=== PATIENT | female | born 1970 | race Caucasian/White ===

== ENCOUNTER 2016-04-21 08:30 | Outpatient (CLI) ==
[2015-03-10 14:13] VITALS: BMI 29.0
--- NOTE | 2016-04-22 10:41 | MAMMO ---
EXAM: Bilateral digital screening mammogram History: Baseline screening Findings: MLO and CC views of bilateral breast demonstrate scattered fibroglandular breast parenchy ma. Benign bilateral breast calcifications. 0.7 cm well circumscribed nodule seen within the lower inner quadrant of the anterior left breast. No suspicious microcalcifications. Impression: Indeterminate lower inner quadrant left breast nodule. Recommend further evaluation wi th spot compression views and ultrasound. BIRADS 0
== END 2016-04-21 08:31 | disposition home or self-care (01) ==
LOC: RAD 08:30
PROVIDERS: ATTEND Nurse Practitioner Family
DX: Z12.31 Encounter for screening mammogram for malignant neoplasm of breast (principal)

== ENCOUNTER 2016-04-27 09:10 | Outpatient (CLI) ==
[2015-03-10 14:13] VITALS: BMI 29.0
--- NOTE | 2016-04-27 10:18 | MAMMO ---
EXAM: Digital left diagnostic mammogram and ultrasound HISTORY: Nodular density seen in the medial left breast COMPARISON: Screening mammogram 04/21/2016 FINDINGS: Two spot compression views of the breast were performed digitally and demonstrate stable scattered fibroglandular density. The nodule in the medial inferior left breast is redemonstrated wi th normal appearing borders and measures 0.6 x 0.8 cm. No additional nodule or abnormality is ident ified. Sonographic evaluation of the area of interest demonstrates no focal nodule or cyst. IMPRESSION: Nodular density in the medial left breast is not visualized on ultrasound with a well m arginated benign-appearing borders. RECOMMENDATION: Follow up left mammogram and ultrasound in 6 months BIRADS category III: Probable benign finding
== END 2016-04-27 09:11 | disposition home or self-care (01) ==
LOC: RAD 09:10
PROVIDERS: ATTEND Nurse Practitioner Family
DX: N63 Unspecified lump in breast (principal)

== ENCOUNTER 2016-05-03 08:35 | Outpatient (CLI) ==
[2015-03-10 14:13] VITALS: BMI 29.0
[2016-05-03 08:58] LABS: BASOPHILS % (AUTO) 0.7 % (0.0-3.0); EOSINOPHILS # (AUTO) 0.1 K/ul (0.0-0.7); EOSINOPHILS % (AUTO) 2.2 % (0.0-7.0); HEMATOCRIT 35.2 % (37.0-47.0); HEMOGLOBIN 10.1 g/dl (12.0-16.0); IMMATURE GRANULOCYTE % (AUTO) 0.2 % (0.0-5.0); LYMPHOCYTES # (AUTO) 1.7 K/uL (0.60-3.4); LYMPHOCYTES % (AUTO) 30.3 (10.0-50.0); MEAN CORPUSCULAR HEMOGLOBIN 22.3 pg (27.0-31.0); MEAN CORPUSCULAR HGB CONC 28.7 (31.8-35.4); MEAN CORPUSCULAR VOLUME 77.7 fl (81.0-99.0); MONOCYTES # (AUTO) 0.3 K/uL (0.4-2.0); MONOCYTES % (AUTO) 5.6 (0-10); NEUTROPHILS # (AUTO) 3.4 K/ul (2.0-6.9); PLATELET COUNT 267 10^3/uL (140-440); RED BLOOD COUNT 4.53 10^6/ul (4.20-5.40); WHITE BLOOD COUNT 5.54 K/ul (4.6-10.2)
[2016-05-03 10:13] LABS: ALBUMIN 3.5 g/dL (3.4-5.0); ALBUMIN/GLOBULIN RATIO 0.95; ANION GAP 12.2; BILIRUBIN,TOTAL 0.36 mg/dL (0.00-1.20); CALCIUM 9.4 mg/dL (8.2-10.2); CREATININE 0.86 mg/dL (0.60-1.30); POTASSIUM 4.2 mmol/L (3.5-5.10); TOTAL PROTEIN 7.2 g/dL (6.4-8.2)
[2016-05-03 10:14] LABS: BUN/CREATININE RATIO 5.81; CHOL/HDL RATIO 4.5 (4.5-5.5)
== END 2016-05-03 08:36 | disposition home or self-care (01) ==
LOC: CAR 08:35
PROVIDERS: ATTEND Nurse Practitioner Family
DX: R05 Cough (principal); Z72.0 Tobacco use; Z00.00 Encounter for general adult medical examination without abnormal findings
CPT/HCPCS: 36415; 80053; 80061; 84443; 85025

== ENCOUNTER 2016-10-12 07:41 | Outpatient (CLI) ==
[2015-03-10 14:13] VITALS: BMI 29.0
--- NOTE | 2016-10-12 09:07 | MAMMO ---
EXAM: Left digital diagnostic mammogram History: Follow-up left breast mass. Comparison: Left breast mammogram 04/27/2016 Findings: MLO and CC views of bilateral breasts demonstrate scattered fibroglandular breast parench yma. Stable benign nodule within the lower inner quadrant of the left breast. No developing masses and no suspicious microcalcifications. Impression: Benign left breast nodule is stable. Recommend return to routine screening mammography schedule. BIRADS 2
== END 2016-10-12 07:42 | disposition home or self-care (01) ==
LOC: RAD 07:41
PROVIDERS: ATTEND Nurse Practitioner Family
DX: N63 Unspecified lump in breast (principal)

== ENCOUNTER 2017-09-19 10:56 | Outpatient (CLI) ==
[2015-03-10 14:13] VITALS: BMI 29.0
== END 2017-09-19 10:57 | disposition home or self-care (01) ==
LOC: LAB 10:56
PROVIDERS: ATTEND Internal Medicine
DX: J20.9 Acute bronchitis, unspecified (principal); J44.9 Chronic obstructive pulmonary disease, unspecified; E66.9 Obesity, unspecified
CPT/HCPCS: 36415; 80053; 80061; 80074; 82306; 82607; 83036; 84439; 84443; 85025

== ENCOUNTER 2017-09-27 08:41 | Outpatient (CLI) ==
[2015-03-10 14:13] VITALS: BMI 29.0
== END 2017-09-27 08:42 | disposition home or self-care (01) ==
LOC: CAR 08:41
PROVIDERS: ATTEND Internal Medicine
DX: R06.02 Shortness of breath (principal); J44.9 Chronic obstructive pulmonary disease, unspecified

== ENCOUNTER 2017-09-28 08:10 | Outpatient (CLI) ==
[2015-03-10 14:13] VITALS: BMI 29.0
== END 2017-09-28 08:11 | disposition home or self-care (01) ==
LOC: LAB 08:10
PROVIDERS: ATTEND Internal Medicine
DX: R71.8 Other abnormality of red blood cells (principal)
CPT/HCPCS: 36415; 82607; 82728; 82746; 83540; 83550; 84466; 85045

== ENCOUNTER 2017-10-17 09:08 | Outpatient (CLI) ==
[2015-03-10 14:13] VITALS: BMI 29.0
--- NOTE | 2017-10-17 10:25 | DI ---
EXAM: Two views of the chest. History: Cough. Findings: Heart size is normal. No focal consolidation. No appreciable pleural fluid and no pneumo thorax. No acute osseous abnormalities. Impression: No acute cardiopulmonary process.
--- NOTE | 2017-10-18 09:47 | MAMMO ---
EXAM: Bilateral digital screening mammogram (2-D and 3-D) History: Screening Comparison: Bilateral mammogram 04/21/2016 Findings: MLO and CC views of bilateral breasts demonstrate scattered fibroglandular breast parenchy ma. CAD was reviewed by the radiologist. Tomosynthesis was performed. Stable benign bilateral breas t calcifications. There are no developing masses and no suspicious microcalcifications. Impression: Benign stable mammogram. Recommend followup routine screening mammography in 1 year. BIRADS 2
== END 2017-10-17 09:09 | disposition home or self-care (01) ==
LOC: RAD 09:08
PROVIDERS: ATTEND Internal Medicine
DX: Z12.31 Encounter for screening mammogram for malignant neoplasm of breast (principal); R05 Cough; F17.210 Nicotine dependence, cigarettes, uncomplicated
CPT/HCPCS: 77067

== ENCOUNTER 2018-01-22 08:40 | Outpatient (CLI) ==
[2015-03-10 14:13] VITALS: BMI 29.0
== END 2018-01-22 08:41 | disposition home or self-care (01) ==
LOC: LAB 08:40
PROVIDERS: ATTEND Internal Medicine
DX: E78.5 Hyperlipidemia, unspecified (principal); J44.9 Chronic obstructive pulmonary disease, unspecified; E53.8 Deficiency of other specified B group vitamins; D64.9 Anemia, unspecified
CPT/HCPCS: 36415; 80053; 80061; 82607; 83036; 84443; 85025

== ENCOUNTER 2018-06-21 09:00 | Outpatient (CLI) ==
[2015-03-10 14:13] VITALS: BMI 29.0
== END 2018-06-21 09:01 | disposition home or self-care (01) ==
LOC: LAB 09:00
PROVIDERS: ATTEND Internal Medicine
DX: E78.5 Hyperlipidemia, unspecified (principal); D64.9 Anemia, unspecified; E53.8 Deficiency of other specified B group vitamins
CPT/HCPCS: 36415; 80053; 80061; 83036; 84443; 85025